=== PATIENT | male | born 1980 | race Caucasian/White ===

== ENCOUNTER 2022-04-01 08:22 | Outpatient (CLI) | payer OTHER, SELFPAY ==
--- NOTE | 2022-04-29 16:13 | WPDSLEEPSTUD ---
Sleep Study Date of Study: 04/01/22 Ordering Provider: LUCIAN Bennett Interpreting Physician: Nu Rivero MD Sleep Study Type: Polysomnogram Height: 1.73 m Weight: 86.183 kg Body Mass Index: 28.8 Neck Circumference (inches): 15.1 [place]: 16 Reason for Sleep Study Excessive daytime sleepiness Sleep History Amaury Cook is a 42-year-old man who has non-restorative sleep and excessive daytime sleepiness. He is tired every day and has poor sleep at night. He rarely awakens from sleep feeling short of breath.? He never awakens at night with heartburn, belching or coughing.? He constantly snores loudly enough that others complain about it.? He occasionally has trouble sleeping with a cold.? Does not wake up gasping for breath at night.? Occasionally has breathing problems at night observed by others.? He rarely sweats excessively at night.? He does not notice his heart pounding or beating irregularly at night.? He frequently falls asleep during the day, and often this happens involuntarily.? However, he never falls asleep while driving. ?He does not have loss of muscle tone with strong emotion.? He rarely has daytime difficulties due to excessive sleepiness.? He does not feel paralyzed on waking or falling asleep.? He rarely has vivid dreamlike scenes on waking or falling asleep.? He rarely has nightmares.? He does not remember his dreams.? He denies having racing thoughts.? He does not feel sad or depressed.? Occasionally he feels anxious.? He rarely has muscular tension.? He does not notice parts of his body jerking and he does not kick at night.? He does not have crawling aching feelings in his legs.? He denies any kind of leg pain at night.? He does not have morning jaw pain.? He does not grind his teeth during sleep.? He is does not have pain during the day nor is he awakened by pain during the night.? He does not wake up feeling stiff in the morning.? He denies waking up with sore or achy muscles.? He does not wake up with pain in the neck and spine.? He has fatigue and headaches. ?He reports a 10 or 15 lb weight gain in the last year. 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 He keeps the same schedule when he is not working. His normal bedtime is between 11 a.m. and 1:00 p.m., usually falls asleep quickly, within 30 minutes.? He may wake 1-2 times during his sleep to go to the bathroom.? Sometimes noise disturbs him.? He wakes between 8:00 p.m. and 8:30 p.m..? He estimates getting between 6 and 7 hours of sleep.? He keeps the same schedule on weekends. ?He does not take naps.? A short nap is not refreshing.? He is usually drowsy for an hour after waking.? He feels better in the evening compared to other times of day. 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 foot Surgical History Surgical History (Updated 03/10/22 @ 15:22 by Judith Fernandez PA-C) History of bunionectomy History of laparoscopic appendectomy Hx of tympanostomy tubes [place] teeth extracted Family History Family History Mother Thyroid cancer Alcoholism Grandparent Alzheimer disease Unknown Sexual abuse Tobacco user Father Seasonal allergic rhinitis Carpal tunnel syndrome Unknown Asbestosis Social History Social History Smoking status: Never smoker Alcohol intake: unknown Substance use: unknown Substance use type: unknown Medications Home Medications Medication Instructions Recorded Confirmed Type eszopiclone 2 mg tablet (Lunesta) 2 mg PO ONCE #1 tablet 03/10/22 03/10/22 Rx Sleep Procedure This test was performed [facility]
[2022-04-29 16:55] VITALS: BMI 28.8
== END 2022-04-01 16:16 | disposition home or self-care (01) ==
LOC: ANHCSM 08:26
PROVIDERS: Visit Provider Physician Assistant
DX: G47.10 Hypersomnia, unspecified (principal); R06.83 Snoring; G47.61 Periodic limb movement disorder
CPT/HCPCS: 95810

== ENCOUNTER 2022-07-08 10:15 | Outpatient (CLI) | payer OTHER, SELFPAY ==
[2022-07-08 11:46] LABS: Ferritin 7.57 ng/mL (17.9-464)
== END 2022-07-08 10:16 | disposition home or self-care (01) ==
LOC: ANHLAB 10:16
PROVIDERS: Visit Provider Physician Assistant
DX: D64.9 Anemia, unspecified (principal)
CPT/HCPCS: 36415; 82728

== ENCOUNTER 2022-09-09 08:20 | Outpatient (CLI) | payer OTHER, SELFPAY | END 2022-09-09 08:21 | disposition home or self-care (01) | PROVIDERS: Visit Provider Physician Assistant | DX: D64.9 Anemia, unspecified (principal) | CPT/HCPCS: 36415; 82728 ==